=== PATIENT | male | born 1950 | race Caucasian/White ===

== ENCOUNTER 2020-07-07 11:24 | Day surgery (SDC) | payer MEDICARE, OTHER, SELFPAY ==
[2020-07-07] VITALS (9 sets, daily range): BP systolic 128–146; BP diastolic 87–111; PULSE 82–100; RESP 14–18; TEMP 36.1–37.2; O2SAT 92–96; BMI 33.2
--- NOTE | 2020-07-07 12:16 | US_ITS ---
WS: [id number] ABDOMINAL ULTRASOUND LIMITED REASON FOR VISIT: hernia, is tender now , sent by Dr. Marquez TECHNIQUE: Grayscale and Doppler ultrasound examination of the abdomen. FINDINGS: Superior to the umbilicus there is a subcutaneous herniation of what appears to be omentum and bowel. The anterior abdominal wall defect measures approximately 2.2 cm while the hernia mass appears to be approximately 5 cm in maximum dimension. There is no free fluid seen around the herniation. However, no peristalsis or color flow with Doppler could be identified. No peritoneal fluid was identified. US/US abdomen limited [id number] IMPRESSION: Abdominal herniation as described above. Although there is no fluid around the herniation there is concern for vascular compromise of the hernia contents.
--- NOTE | 2020-07-07 13:06 | XR_ITS ---
WS: [id number] Portable AP upright chest, 07/07/2020 Clinical Data: hernia Comparison: None. Findings: No nodules, masses or effusions are seen. The heart is normal. The pulmonary vascularity is not increased. No pneumonia or pneumothorax is seen. There is minimal right upper lobe peripheral sc arring. The aortic arch and descending aorta show tortuosity. There is a dextroscoliosis. XR/XR chest 1V portable [id number] Impression: Atherosclerosis.
--- NOTE | 2020-07-07 13:06 | ECG_ITS ---
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 Measurements Intervals [place] Rate: 88 P: 58 NC: 230 QRS: -33 QRSD: 108 T: 80 QT: 370 QTc: 449 Interpretive Statements SINUS RHYTHM WITH FIRST DEGREE AV BLOCK LEFT AXIS DEVIATION [QRS AXIS < -30] SEPTAL MYOCARDIAL INFARCTION , OF INDETERMINATE AGE [40+ ms Q WAVE IN V1/V2] PROBABLE LATERAL MYOCARDIAL INFARCTION , OF INDETERMINATE AGE [35 ms Q WAVE IN I/aVL/V5/V6] No previous ECG available for comparison Electronically Signed On 07-07-2020 23:15:24 CDT by Nathan Gamez M.D. [email or web address]
--- NOTE | 2020-07-07 13:28 | W.ED.ABDPA2 ---
HPI - Abdominal Pain General: Chief Complaint: Abdominal Pain Stated Complaint: HERNIA,DUE FOR SURGERY ON W/DR SPRING Time Seen by Provider: 07/07/20 13:22 History of Present Illness: HPI narrative: Patient with a history of a hernia above his umbilicus.'s been hurting for quite a while just getting worse has a scheduled surgical appointment with Dr. Spring on July 20 to have this hernia repaired. Patient states he did not feel like he waiting longer. MD elicited complaint: abdominal pain Onset (ago): day(s) Pain Consistency: constant Severity: moderate Quality: aching Radiation: none Migration to: no migration Associated Symptoms: Reports no associated symptoms; Denies chills, fever(s), nausea and vomiting Review of Systems Const: Denies: fever(s), chills or body aches Eyes: Denies: change in vision or blurry vision ENMT: Denies: throat pain or nasal congestion Card: Denies: chest pain or dyspnea on exertion Resp: Denies: dyspnea, productive cough or non-productive cough GI: Reports: abdominal pain (Her knee has been hurting for a few days); Denies: nausea or vomiting : Denies: difficulty urinating Musc: Denies: extremity pain Skin/Breast: Denies: rash Neuro: Denies: headache(s) Psych: Denies: anxiety or depression Bob/Lymph: Denies: easy bruising PFSH ED PFSH: Medical History (Updated 07/07/20 @ 13:57 by Khoi Spring MD) Parkinsons disease Surgical History (Updated 07/07/20 @ 13:57 by Khoi Spring MD) History of neck surgery x 2 -- anterior/posterior fracture repair History of ventral hernia repair Family History (Updated 07/07/20 @ 13:58 by Khoi Spring MD) Mother No problems noted. Social History (Updated 07/07/20 @ 13:59 by Khoi Spring MD) Smoking and tobacco status: never smoked Alcohol intake: never Physical Exam Const: COMMON NORMALS: no acute distress, average body habitus and patient oriented x3 HENMT: COMMON NORMALS: normocephalic HEAD & SCALP: normal to inspection and normocephalic FACE & SINUS: normal facial exam Eye: COMMON NORMALS: conjunctivae normal GENERAL EYE: appearance normal, both eyes and all related structures CONJUNCTIVA: Yes conjunctivae normal Neck/C-Spine: COMMON NORMALS: no JVD Chest: COMMONS NORMALS: normal inspection of the chest Resp: COMMON NORMALS: normal respiratory effort Cardio: COMMON NORMALS: no JVD, regular rate and regular rhythm RATE: regular rate RHYTHM: regular rhythm GI: COMMON NORMALS: Soft to palpation INSPECTION: Yes visible herniation (Herniation above the umbilicus is tender to the touch no redness noted) AUSCULTATION: Yes normoactive bowel sounds PALPATION: Yes Soft to palpation Extremity: COMMON NORMALS: normal to inspection and full ROM Neuro: COMMON NORMALS: patient oriented x3 MOTOR EXAM: Other motor observations present (Seems to have a mild tremor.) Course Vital Signs: Vital signs: Vital Signs Temperature 98.9 F 07/07/20 14:15 Pulse Rate 82 07/07/20 14:15 Respiratory Rate 18 07/07/20 14:15 Blood Pressure 141/111 07/07/20 14:15 Pulse Oximetry 96 07/07/20 14:15 MDM - Abdominal Pain MDM Narrative: Medical decision making narrative: I spoke with Dr. Spring in the ER. Lab Data: Labs: Lab Results 07/07/20 07/07/20 07/07/20 Range/Units 13:45 13:45 13:45 WBC 7.1 (4.0-10.0) 10^3/ uL RBC 4.97 (4.1-5.3) 10^6/u L Hgb 16.2 (11.7-16.6) g/dL Hct 48.6 (42.0-52.0) % MCV 97.8 H (80-94) fL MCH 32.6 (28.0-34.0) pg MCHC 33.3 (30.0-36.0) g/dL RDW 14.7 (12.1-15.1) % Plt Count 253 (130-400) 10^3/c mm MPV 10.0 (7.4-10.4) fL Neut % (Auto) 61.8 % Lymph % (Auto) 27.5 % [place] % (Auto) 8.2 % Eos % (Auto) 1.3 % Baso % (Auto) 0.6 % Neut # (Auto) 4.39 (1.8-7.7) 10^3/u L Lymph # (Auto) 2.0 (0.8-4.8) 10^3/u L [place] # (Auto) 0.6 (0.2-0.9) 10^3/u L Eos # (Auto) 0.1 (0.0-0.8) 10^3/u L Baso # (Auto) 0.0 (0.0-0.1) 10^3/u L Nucleated RBC % (a uto) 0 % Nucleated RBCs # 0.0 /100WBC PT 13.60 (12.1-14.9) SECO NDS INR 1.01 (0.8-1.2) Sodium 139 (136-145) mmol/L Potassium 3.8 (3.5-5.1) mmol/L Chloride 101 (98-107) mmol/L Carbon Dioxide 27 (22-29) mmol/L Anion Gap 14.8 (5-19) BUN 10 (8-23) mg/dL Creatinine 0.8 (0.7-1.2) mg/dL GFR Calculation 95.8 (90-130) mL/min Glucose 108 (65-115) mg/dL Calculated Osmolal ity 288 (285-295) mOsm/k g Calcium 9.3 (8.5-10.5) mg/dL Total Bilirubin 0.5 (0.15-1.2) mg/dL AST 19 (0-40) U/L ALT 11 (0-41) U/L Alkaline Phosphata se 73 (40-130) IU/L Total Protein 7.8 (6.6-8.7) g/dL Albumin 4.3 (3.5-5.2) g/dL Globulin 3.5 (1.3-4.6) g/dL Coding Level of Care Code ED [employer] for Chg Fwd Exam Comprehensive
--- NOTE | 2020-07-07 13:48 | PM.HP ---
Providers/Chief Complaint Admitting Physician: General Surgery Khoi Spring MD Chief Complaint: HERNIA,DUE FOR SURGERY ON W/DR SPRING History of Present Illness Max Weston is a 70 year old male who I saw earlier this month in the office with a partially incarcerated recurrent ventral hernia. He had a hernia repaired laparoscopically in [place], [place] around 2013. He said within a couple of weeks following the surgery he had another bulge occurring at the upper portion of where the hernia repair had been done. This has slowly gotten larger. He says it seems to get very bloated when he eats. He has had more of a pressure sensation as opposed to pain, at least up to the time when I saw him in the office. Over the past several days, however, he says that he has been having more discomfort in the area, particularly after eating. He had a normal bowel movement yesterday. He does not really think he is passing as much flatus as normal but had a fairly normal breakfast this morning without any nausea, etc. He apparently started feeling considerably better on the way to the hospital but his still insisted that he be seen. Review of Systems General: Reports: 10 or more systems reviewed and unremarkable except in HPI and below Const: Denies: fever(s) GI: Reports: abdominal pain; Denies: nausea, vomiting or change in bowel habits Medications/Allergies Allergies Allergy/AdvReac Type Severity Reaction Status Date / Time No Known Allergies Allergy Verified 07/07/20 12:16 PFSH Acute PFSH: Medical History (Updated 07/07/20 @ 13:57 by Khoi Spring MD) Parkinsons disease Surgical History (Updated 07/07/20 @ 13:57 by Khoi Spring MD) History of neck surgery x 2 -- anterior/posterior fracture repair History of ventral hernia repair Family History (Updated 07/07/20 @ 13:58 by Khoi Spring MD) Mother No problems noted. Social History (Updated 07/07/20 @ 13:59 by Khoi Spring MD) Smoking and tobacco status: never smoked Alcohol intake: never Vitals/I&O/Wt Last Vital Signs Temp 98.3 F 07/07/20 12:07 Pulse 100 07/07/20 12:07 Resp 18 07/07/20 12:07 BP 134/87 07/07/20 12:07 Pulse Ox 94 07/07/20 12:07 Weight last 48 hrs Weight 225 lb Physical Exam Narrative: EXAM NARRATIVE: The patient was encountered in his room in the emergency department. He does not appear to be in any acute distress. The pupils seem equal. No carotid bruits are heard. The lungs are clear anteriorly. The heart is regular. The abdomen is mildly to moderately obese and is soft but he does have an obvious hernia above the level of the umbilicus. Once again, this is not fully reducible, much like it was in the office. He does not seem to have much in the way of tenderness in the area, however, and there are no overlying skin changes. Bowel sounds are present. The extremities reveal no edema. The patient can move all limbs to command. Data US: Radiologist's impression: Abdominal ultrasound 07/07/2020 IMPRESSION: FINDINGS: Superior to the umbilicus there is a subcutaneous herniation of what appears to be omentum and bowel. The anterior abdominal wall defect measures approximately 2.2 cm while the hernia mass appears to be approximately 5 cm in maximum dimension. There is no free fluid seen around the herniation. However, no peristalsis or color flow with Doppler could be identified. No peritoneal fluid was identified. A&P Assessment and plan (1) Recurrent ventral hernia with incarceration: The patient's hernia currently seems to be much as it was when I saw him earlier this month in the office. It sounds like it was worse over the past several days and was particularly symptomatic this morning, but he says he started feeling a lot better on the way to the hospital. Even though he is feeling better, I told him that if the hernia is starting to give him more problems we could go ahead and proceed with a repair while he is here, as his outpatient surgery is not scheduled for a couple more weeks. The procedure was once again discussed with him. He has decided that he would like to proceed with a repair while he is here today. He would very much like to try to go home later today if at all possible. Status: Acute Attestations Medical Necessity Statement*: We are going to leave the patient in outpatient status for now, as there is a good possibility he will be able to go home later today. Coding Level of Care Code Acute Environmental Tech for Luke Mcmahon Diagnoses Recurrent ventral hernia with incarceration K43.0
[2020-07-07 13:55] LABS: Basophils % 0.6 %; Eosinophils # 0.1 10^3/uL (0.0-0.8); Eosinophils % 1.3 %; Hematocrit 48.6 % (42.0-52.0); Hemoglobin 16.2 g/dL (11.7-16.6); Lymphocytes % 27.5 %; Mean Corpuscular HGB Conc 33.3 g/dL (30.0-36.0); Mean Corpuscular Hemoglobin 32.6 pg (28.0-34.0); Mean Corpuscular Volume 97.8 fL (80-94); Monocytes # 0.6 10^3/uL (0.2-0.9); Monocytes % 8.2 %; Neutrophils # 4.39 10^3/uL (1.8-7.7); Neutrophils % 61.8 %; Nucleated Red Blood Cells % 0 %; Platelet Count 253 10^3/cmm (130-400); Red Blood Count 4.97 10^6/uL (4.1-5.3); Red Cell Distribution Width 14.7 % (12.1-15.1); White Blood Count 7.1 10^3/uL (4.0-10.0)
[2020-07-07 14:10] LABS: INR 1.01 (0.8-1.2)
[2020-07-07 14:15] LABS: Alanine Aminotransferase 11 U/L (0-41); Albumin Level 4.3 g/dL (3.5-5.2); Alkaline Phosphatase 73 IU/L (40-130); Anion Gap 14.8 (5-19); Aspartate Amino Transferase 19 U/L (0-40); Blood Urea Nitrogen 10 mg/dL (8-23); Calcium 9.3 mg/dL (8.5-10.5); Carbon Dioxide 27 mmol/L (22-29); Chloride 101 mmol/L (98-107); Globulin 3.5 g/dL (1.3-4.6); Glomerular Filtration Rate 95.8 mL/min (90-130); Glucose 108 mg/dL (65-115); Osmolality Calculated 288 mOsm/kg (285-295); Potassium 3.8 mmol/L (3.5-5.1); Sodium 139 mmol/L (136-145); Total Bilirubin 0.5 mg/dL (0.15-1.2); Total Protein 7.8 g/dL (6.6-8.7)
[2020-07-07] MEDS: lactated ringers 1,000 ML 125 ML IV (14:19)
--- NOTE | 2020-07-07 14:38 | ANES.PREANE2 ---
Pre-Anesthetic Assessment Pre-Anesthetic Assessment: Height/Weight: Height 1.75 m Weight 102.058 kg Temp Pulse Resp BP Pulse Ox 98.9 F 82 18 141/111 96 07/07/20 14:15 07/07/20 14:15 07/07/20 14:15 07/07/20 14:15 07/07/20 14:15 Proposed Procedure: Operation Date: 07/07/20 14:50 Proposed Procedures p Ventral Hernia Repair (Open)(Not Applicable) - Khoi Marquez MD Was Beta Anthony taken within 24 hours: N/A Was Clonidine taken within 24 hours: N/A Social: Social History: No alcohol and No tobacco Exam: Pre-Anes Outpt Exam: alert, oriented x 3, clear to auscultation bilaterally and regular rate & rhythm Airway: Submandibular: WNL Cervical ROM: WNL MP: 3 Dentition: Full Pulmonary: Pulmonary: COPD Metabolic: Metabolic: Morbid obesity Neuropsych: Comments: Parkinson's Anesthetic Plan: ASA status: 3E Anesthesia: General (RSI) Risk of > 500 ml blood loss (7ml/kg in children): No Meds/Allergies Current Medications: Current Medications Generic Name Dose Route Start Last Admin Trade Name Freq PRN Reason Stop Dose Admin Lactated Ringer's 1,000 mls @ 125 m ls/hr 07/07/20 14:00 07/07/20 14:19 Lactated Ringers IV 125 mls/hr .Q8H JUVENAL Administration PFSH Anesthesia PFSH: Medical History (Updated 07/07/20 @ 13:57 by Khoi Marquez MD) Parkinsons disease Surgical History (Updated 07/07/20 @ 13:57 by Khoi Marquez MD) History of neck surgery x 2 -- anterior/posterior fracture repair History of ventral hernia repair Family History (Updated 07/07/20 @ 13:58 by Khoi Marquez MD) Mother No problems noted. Social History (Updated 07/07/20 @ 13:59 by Khoi Marquez MD) Smoking and tobacco status: never smoked Alcohol intake: never Data Anesthesia CBC & Chem 7: 07/07/20 13:45 07/07/20 13:45 Other Labs: Laboratory Results - last 48 hr 07/07/20 07/07/20 07/07/20 13:45 13:45 13:45 WBC 7.1 RBC 4.97 Hgb 16.2 Hct 48.6 MCV 97.8 H MCH 32.6 MCHC 33.3 RDW 14.7 Plt Count 253 MPV 10.0 Neut % (Auto) 61.8 Lymph % (Auto) 27.5 [place] % (Auto) 8.2 Eos % (Auto) 1.3 Baso % (Auto) 0.6 Neut # (Auto) 4.39 Lymph # (Auto) 2.0 [place] # (Auto) 0.6 Eos # (Auto) 0.1 Baso # (Auto) 0.0 Nucleated RBC % (auto) 0 Nucleated RBCs # 0.0 PT 13.60 INR 1.01 Sodium 139 Potassium 3.8 Chloride 101 Carbon Dioxide 27 Anion Gap 14.8 BUN 10 Creatinine 0.8 GFR Calculation 95.8 Glucose 108 Calculated Osmolality 288 Calcium 9.3 Total Bilirubin 0.5 AST 19 ALT 11 Alkaline Phosphatase 73 Total Protein 7.8 Albumin 4.3 Globulin 3.5 Cardiac Studies: No Data to Display
--- NOTE | 2020-07-07 15:53 | PM.OP ---
Operative Report Date of procedure: July 07, 2020 Pre-op Diagnosis: Incarcerated recurrent ventral hernia. Post-op diagnosis: same Procedure Done: Reduction and repair of incarcerated recurrent ventral hernia. Specimens removed/disposition: Hernia sac with incarcerated omentum. Surgeon: Khoi Marquez Anesthesia: General Estimated blood loss (mL): 5 Complications: None. Condition: stable Disposition: PACU Procedure: The patient was brought to the operating room and was placed in a supine position on the operating room table. General endotracheal anesthesia was induced. The abdomen was prepped and draped in a sterile fashion. A vertical incision was carried out above the umbilicus in the midline. Cautery was used to divide the subcutaneous tissue and the hernia sac was identified. This was freed on all sides from the surrounding subcutaneous tissue using cautery down to the fascial layer. The hernia sac was eventually opened and was found to contain incarcerated omentum. The hernia sac was freed from the fascia at the defect which measured about 2.5?3 cm in diameter. The omentum was divided and ligated with ties of 2-0 Vicryl. The hernia sac and incarcerated omentum were removed. The wound was irrigated with saline. Palpation through the hernia defect revealed a small umbilical hernia defect inferiorly. Mesh was also palpable down at about the umbilical level. Dissection was carried out through the subcutaneous tissue on top of the fascia down to the umbilicus where the herniated fat through the hernia defect at the umbilicus was found. This was excised. The defect was then closed using an inverted suture of 0 Prolene. Attention was directed back to the main defect. This was closed transversely using multiple inverted interrupted sutures of 0 Prolene. The repair was buttressed with a [id number] suture of 0 Vicryl. A final round of irrigation was carried out. The skin was reapproximated using a running subcuticular suture of 4-0 Vicryl after the dermis had been approximated using multiple inverted interrupted sutures of 3-0 Vicryl. Benzoin and Steri-Strips were placed over the incision and a sterile bandage followed. The patient was taken to the recovery area in stable condition postoperatively.
--- NOTE | 2020-07-07 15:59 | ANE.PACU2 ---
Inpatient post-anesthesia follow up: Airway intact: Yes Vital signs: Temperature 98.9 F Pulse Rate [Monito r] 100 Pulse Rate 82 Respiratory Rate 18 Blood Pressure [Le ft Arm] 134/87 Blood Pressure 141/111 Pulse Oximetry 96 Oxygen Delivery Me thod Room Air Oxygen Flow Rate Fraction of Inspir ed Oxygen Hydration adequate: Yes Nausea and vomiting: No Pain level: 2 Additional Comments: Sedated
--- NOTE | 2020-07-07 16:50 | PC.NURSE ---
IV WAS STARTED IN ER AND DC';D IN OPS BEFORE DISCHARGE.
== END 2020-07-07 17:00 | disposition home or self-care (01) ==
LOC: ER 13:28 → OR 13:59
PROVIDERS: Emergency Provider Nurse Practitioner Family; Visit Provider Surgery
PROC: 0WQF0ZZ Repair Abdominal Wall, Open Approach (ICD-10-PCS; CPT 49566; principal; 2020-07-07 14:30)
DX: K43.0 Incisional hernia with obstruction, without gangrene (principal); G20 Parkinson's disease; I70.90 Unspecified atherosclerosis
CPT/HCPCS: 49566; 12345; 71045; 76705; 80053; 85025; 85610; 88302; 93005; 96365; J0690; J1100; J2405; J2704; J3010; J3490

== ENCOUNTER 2020-07-20 09:12 | Emergency (ER) | payer MEDICARE, OTHER, SELFPAY ==
[2020-07-20 09:23] VITALS: BP 152/90; PULSE 90; RESP 18; TEMP 36.2; O2SAT 94; BMI 35.4
--- NOTE | 2020-07-20 09:47 | ED_ITS ---
HPI - Nausea/Vomiting/Diarrhea General: Chief complaint: Nausea/Vomiting/Diarrhea Stated complaint: Nausea post-hernia repair Time Seen by Provider: 07/20/20 09:21 Source: patient and family (spouse) Mode of arrival: ambulatory Limitations: no limitations History of Present Illness: HPI Narrative: 70-year-old male patient presents to the emergency department with ventral pain. Hernia surgery completed 07/07/[address] Marquez, states was doing very well, was released from Dr. Marquez on Friday. He reports went to therapy yesterday, therapy completed due to weakness sustained from Covid infection. He reports onset of abdominal pain, nausea soon followed. He noted a knot in his incision site from ventral hernia surgery, was told to come to the emergency department for possible perforation. He reports pain is not too bad, he denies nausea as long as he does not eat. He denies fever chills, difficulty with bowel movements, he denies blood in his stool. He states has not taken Aspirin in 3 weeks. MD elicited complaint: nausea and abdominal pain Pertinent past history: abdominal surgery Onset (ago): day(s) (1) Associated nausea: Yes Location of pain: Periumbilical Pain consistency: intermittent Severity: mild Exacerbating factors: eating Context: history of abdominal surgery Associated symtoms: Reports fatigue (from COVID) and nausea; Denies anxiety, chest pain, dysuria, headache(s) or palpitations Review of Systems General: Reports: 10 or more systems reviewed and unremarkable except in HPI and below Const: Reports: fatigue (from COVID) Eyes: Denies: blurry vision or eye redness ENMT: Denies: throat pain, dental pain or disequilibrium Card: Denies: chest pain, palpitations or irregular heart rhythm Resp: Denies: dyspnea, productive cough, non-productive cough or wheezing GI: Reports: abdominal pain and nausea; Denies: vomiting, hematemesis, heartburn, diarrhea or constipation : Denies: dysuria Musc: Denies: neck pain, back pain, joint pain or joint warmth Skin/Breast: Denies: rash or pruritus Neuro: Denies: headache(s), weakness in extremities or behavioral changes Psych: Denies: anxiety, depression or change in appetite Bob/Lymph: Denies: easy bruising PFS ED PFSH: Medical History Parkinsons disease Surgical History History of neck surgery x 2 -- anterior/posterior fracture repair History of ventral hernia repair Family History (Updated 07/07/20 @ 13:58 by Khoi Marquez MD) Mother No problems noted. Social History Smoking and tobacco status: never smoked Alcohol intake: never Physical Exam Const: COMMON NORMALS: no acute distress, patient oriented x3, healthy appearing and alert GENERAL APPEARANCE: cooperative, comfortable, well kempt and well hydrated NUTRITIONAL APPEARANCE: overweight ORIENTATION/CONSCIOUSNESS: Yes awake, Yes oriented to person, Yes oriented to place and Yes oriented to time HENMT: COMMON NORMALS: normocephalic, Normal external nose present and moist oral mucous membranes HEAD & SCALP: normocephalic NOSE: Normal external nose present Eye: COMMON NORMALS: Equal, round and reactive pupils present and EOMs intact bilaterally GENERAL EYE: appearance normal, both eyes and all related structures PUPIL: Yes Equal, round and reactive pupils present Neck/C-Spine: COMMON NORMALS: full ROM and no lymphadenopathy GENERAL: Yes normal visual inspection and Yes trachea midline CERVICAL SPINE: Yes cervical ROM normal Lymph: LYMPHATIC: no lymphadenopathy noted Chest: COMMONS NORMALS: normal inspection of the chest and normal palpation of entire chest wall Resp: COMMON NORMALS: normal respiratory effort, No retractions, No use of accessory muscles and clear to auscultation bilaterally EFFORT & INSPECTION: Yes able to speak in complete sentences, Yes symmetric chest movement, No Actively coughing and No uses accessory muscles AUSCULTATION: clear to auscultation bilaterally and no wheezes Cardio: COMMON NORMALS: regular rhythm, S1 normal heart sound present, S2 normal heart sound present and Peripheral pulses 2+ throughout RHYTHM: regular rhythm HEART SOUNDS: S1 normal heart sound present and S2 normal heart sound present PERIPHERAL PULSES: Peripheral pulses 2+ throughout GI: COMMON NORMALS: Soft to palpation INSPECTION: Yes abdominal wall ecchymosis (umbilical), No Abdominal wall edema, Yes abdominal distension, Yes incision Inspection of incision: healing well, No central obesity and Yes scar AUSCULTATION: Yes Hypoactive bowel sounds present PALPATION: Yes Soft to palpation : COMMON NORMALS: Yes no CVA tenderness BLADDER/KIDNEY EXAM: Yes no CVA tenderness Back/Pelvis: COMMON NORMALS: no CVA tenderness and thoracic and lumbar spine normal to inspection Extremity: COMMON NORMALS: normal to inspection and capillary refill normal Neuro: COMMON NORMALS: patient oriented x3 and no focal motor deficits SENSORIUM/ORIENTATION: Yes alert, Yes oriented to person, Yes oriented to place and Yes oriented to time Psych: COMMON NORMALS: mental status grossly normal, Normal thought process present and cooperative APPEARANCE: Yes well kempt ACTIVITY/MOTOR BEHAVIOR: Yes appropriate eye contact THOUGHT PROCESS: Normal thought process present Skin: COMMON NORMALS: no rashes or lesions noted and turgor normal GENERAL SKIN EXAM: no rashes or lesions noted and turgor normal Course ED course: 70-year-old male patient presents to the emergency room with concern his hernia may have perforated. Is advised to come to the ED at the recommendation of surgical Associates. Patient has complained of nausea x24 hours with complaints of abdominal pain to this postsurgical area. I appreciated a soft masslike abnormality at the incision site. Patient did not complain of pain with palpation. The site was not redness or swelling. He was provided Zofran here in the ED which resolved his nausea, he was able to tolerate p.o. fluids. CT scan was reviewed by Dr. Marquez who advised patient to follow-up in his office next week. Abnormality most likely represents seroma which will resolve on its own. I advised patient to take it easy over the next several days and to refrain from therapy until follow-up with Dr. Marquez. He was provided a prescription of Zofran and advised to return the emergency department for worsening/concerning symptoms. Consultations: Consultation #1: Dr Marquez -CT scan reviewed, advised patient to follow-up in his office next week, appears as seroma postoperatively. Will resolve on its own most likely. Time: 12:00 Vital Signs: Vital signs: Vital Signs Temperature 97.2 F L 07/20/20 09:23 Pulse Rate 83 07/20/20 10:30 Respiratory Rate 18 07/20/20 10:30 Blood Pressure 122/88 07/20/20 10:30 Pulse Oximetry 95 07/20/20 10:30 MDM - Nausea/Vomiting/Diarrhea Lab Data: Labs: Lab Results 07/20/20 07/20/20 07/20/20 Range/Units 10:00 10:00 10:00 WBC 8.0 (4.0-10.0) 10^3/ uL RBC 4.53 (4.1-5.3) 10^6/u L Hgb 15.0 (11.7-16.6) g/dL Hct 44.7 (42.0-52.0) % MCV 98.7 H (80-94) fL MCH 33.1 (28.0-34.0) pg MCHC 33.6 (30.0-36.0) g/dL RDW 15.1 (12.1-15.1) % Plt Count 213 (130-400) 10^3/c mm MPV 10.0 (7.4-10.4) fL Neut % (Auto) 68.8 % Lymph % (Auto) 20.1 % [place] % (Auto) 6.2 % Eos % (Auto) 4.1 % Baso % (Auto) 0.4 % Neut # (Auto) 5.52 (1.8-7.7) 10^3/u L Lymph # (Auto) 1.6 (0.8-4.8) 10^3/u L [place] # (Auto) 0.5 (0.2-0.9) 10^3/u L Eos # (Auto) 0.3 (0.0-0.8) 10^3/u L Baso # (Auto) 0.0 (0.0-0.1) 10^3/u L Nucleated RBC % (a uto) 0 % Nucleated RBCs # 0.0 /100WBC Sodium 137 (136-145) mmol/L Potassium 4.3 (3.5-5.1) mmol/L Chloride 101 (98-107) mmol/L Carbon Dioxide 24 (22-29) mmol/L Anion Gap 16.3 (5-19) BUN 8 (8-23) mg/dL Creatinine 0.7 (0.7-1.2) mg/dL GFR Calculation 111.8 (90-130) mL/min Glucose 106 (65-115) mg/dL Calculated Osmolal ity 283 L (285-295) mOsm/k g Lactate 1.1 (0.5-2.2) mmol/L Calcium 9.0 (8.5-10.5) mg/dL Total Bilirubin 0.6 (0.15-1.2) mg/dL AST 19 (0-40) U/L ALT < 5 (0-41) U/L Alkaline Phosphata se 67 (40-130) IU/L Total Protein 7.0 (6.6-8.7) g/dL Albumin 3.7 (3.5-5.2) g/dL Globulin 3.3 (1.3-4.6) g/dL Imaging Data^: Other Imaging: Radiologist's impression: [facility] [address] [place] [address] CT Scan Report Signed Patient: Max Weston Unit #: [id number] : [id number] Age/Sex: 70 / M ADM Date: 07/20/20 Loc: ER Room/Bed: Attending Dr: Ordering Provider/Ordering MD: Eloise Philippe Date of Service: 07/20/20 Procedure(s): CT abdomen pelvis w con* [id number] Accession Number(s): [id number] Report Number: [id number] WS: [id number] CT ABDOMEN AND PELVIS WITH CONTRAST HISTORY: abd pain s/p hernia surgery ? Rupture TECHNIQUE: Imaging performed of the abdomen and pelvis with IV contrast. Single phase imaging of the abdomen. Coronal and sagittal reformats are submitted. All CT scans at [facility] use at least one of these dose optimization techniques: automated exposure control; mA and/or kV adjustment per patient size (includes targeted exams where dose is matched to clinical indication); or iterative reconstruction. IV CONTRAST: Omnipaque 300; 95 mL IV. Oral contrast: No DLP: 3581.08 mGy.cm COMPARISON: None available. Lower thorax: Lung bases are clear. Moderate enlargement the heart. No hiatal hernia. Liver/biliary system: Cysts in the RIGHT lobe the liver. The largest measures 2.8 x 3.5 cm. No bile duct dilatation or mass. Gallbladder: Normal. No gallstones or wall thickening. No pericholecystic fluid. Pancreas: Normal. Spleen: Normal. Adrenal glands: Normal. Right kidney: No hydronephrosis. Horseshoe kidney. Left kidney: No hydronephrosis. Horseshoe kidney. Aorta: Normal. Lymphadenopathy: None. Free fluid: None. GI tract: No GI tract obstruction. Normal appendix. No herniation of gastrointestinal tract within the abdominal wall. Abdominal wall: There is a soft tissue mass in the midline of the abdominal wall near the umbilicus which extends over a length of 6.7 cm x 7.4 cm. This is at the surgical site for hernia repair. There are no foci of air. This mass does not extend into the abdominal cavity. There is an additional area of fat necrosis within the LEFT lateral mesenteric fat. Pelvis: Normal. Bones: Unremarkable. CT/CT abdomen pelvis w con* [id number] IMPRESSION: 1. Soft tissue subcutaneous mass at the umbilical level measures 6.7 x 7.4 cm and is at the surgical repair site for the hernia. Favor this is most likely a postoperative hematoma or complex seroma postsurgical. Does not have the configuration of an abscess and there is no herniation of bowel loops. 2. Focal area of acute fat necrosis in the anterior LEFT mesentery. 3. Horseshoe kidneys. 4. Hepatic cysts. Discharge Plan Discharge Patient Disposition: Home Clinical Impression: S/P repair of ventral hernia, Nausea Condition: Stable Prescriptions: New Zofran 4 mg tablet 4 mg PO Q4H 5 Days Qty: 14 RF: 0 No Action carbidopa-levodopa 10-100 mg tablet 1 tab PO BID RF: 0 aspirin 81 mg Tablet,Chewable 81 mg PO DAILY RF: 0 Discharge Orders: Discharge ED (Routine); Ordered 07/20/20 Ordered By: Eloise Philippe Referrals: Roula Weston [Primary Care Provider] - Discharge Diet: Advance as tolerated and Clear Liquid Discharge Activity: Limit activity as instructed Patient Instructions: Abdominal Hernia, Acute Nausea and Vomiting (ED), Abdominal Pain (ED), Opioid Safety Activity Restrictions/Additional Instructions: Follow-up with Dr. Marquez next week, call his office for an appointment Return the emergency department if you develop worsening symptoms such as redness to the incision site, fever or chills or worsening abdominal pain Take it easy over the next couple of days Take stool softener if constipation occurs to avoid straining Coding Level of Care Code ED [employer] for [employer] Exam Comprehensive
[2020-07-20 10:01] VITALS: BP 141/94; PULSE 82; RESP 17; O2SAT 95
[2020-07-20 10:07] LABS: Basophils % 0.4 %; Eosinophils # 0.3 10^3/uL (0.0-0.8); Eosinophils % 4.1 %; Hematocrit 44.7 % (42.0-52.0); Lymphocytes # 1.6 10^3/uL (0.8-4.8); Lymphocytes % 20.1 %; Mean Corpuscular HGB Conc 33.6 g/dL (30.0-36.0); Mean Corpuscular Hemoglobin 33.1 pg (28.0-34.0); Mean Corpuscular Volume 98.7 fL (80-94); Monocytes # 0.5 10^3/uL (0.2-0.9); Monocytes % 6.2 %; Neutrophils # 5.52 10^3/uL (1.8-7.7); Neutrophils % 68.8 %; Nucleated Red Blood Cells % 0 %; Platelet Count 213 10^3/cmm (130-400); Red Blood Count 4.53 10^6/uL (4.1-5.3); Red Cell Distribution Width 15.1 % (12.1-15.1)
[2020-07-20 10:30] VITALS: BP 122/88; PULSE 83; RESP 18; O2SAT 95
[2020-07-20 10:32] LABS: Alanine Aminotransferase < 5 U/L (0-41); Albumin Level 3.7 g/dL (3.5-5.2); Alkaline Phosphatase 67 IU/L (40-130); Blood Urea Nitrogen 8 mg/dL (8-23); Carbon Dioxide 24 mmol/L (22-29); Chloride 101 mmol/L (98-107); Globulin 3.3 g/dL (1.3-4.6); Glomerular Filtration Rate 111.8 mL/min (90-130); Glucose 106 mg/dL (65-115); Osmolality Calculated 283 mOsm/kg (285-295); Sodium 137 mmol/L (136-145); Total Bilirubin 0.6 mg/dL (0.15-1.2)
[2020-07-20 10:40] LABS: Anion Gap 16.3 (5-19); Aspartate Amino Transferase 19 U/L (0-40); Lactate (Lactic Acid level) 1.1 mmol/L (0.5-2.2); Potassium 4.3 mmol/L (3.5-5.1)
[2020-07-20] MEDS: iohexol 300 mg/mL 100 mL Btl IV (10:56)
--- NOTE | 2020-07-20 12:17 | PC.NURSE ---
Patient given sprite for PO challenge, patient tolerated well and had no complaints afterwards.
== END 2020-07-20 12:40 | disposition home or self-care (01) ==
PROVIDERS: Emergency Provider Nurse Practitioner Family; PCP Nurse Practitioner Family
DX: R11.0 Nausea (principal); Z98.890 Other specified postprocedural states; G20 Parkinson's disease
CPT/HCPCS: 74177; 80053; 83605; 85025; 99283; Q9967

== ENCOUNTER → 2021-01-08 09:59 | Outpatient (BNVA) | payer MEDICARE, OTHER, SELFPAY | PROVIDERS: PCP Nurse Practitioner Family; Referring Provider Nurse Practitioner Family; Visit Provider Specialist | DX: G20 Parkinson's disease (principal); I67.9 Cerebrovascular disease, unspecified; H93.19 Tinnitus, unspecified ear | CPT/HCPCS: 99205 ==

== ENCOUNTER → 2021-02-20 10:50 | Outpatient (BNVA) | payer MEDICARE, OTHER, SELFPAY | PROVIDERS: PCP Nurse Practitioner Family; Visit Provider Specialist | DX: G20 Parkinson's disease (principal); I67.9 Cerebrovascular disease, unspecified | CPT/HCPCS: 99214 ==